=== PATIENT | male | born 1975 | race Caucasian/White ===

== ENCOUNTER 2020-06-26 17:49 | Emergency (ER) | payer OTHER ==
[2020-06-26 18:09] VITALS: BP 118/80; PULSE 97; O2SAT 97
--- NOTE | 2020-06-26 18:16 | ERPHSYRPT ---
- History of Present Illness Time Seen by Provider: 06/26/20 17:53 Source: patient Exam Limitations: no limitations Patient Subjective Stated Complaint: Pt states at approximately 1030 today 1000lb roll of carpet fell and hit pt's right leg, knee, and foot. Pt has pain to right knee and foot. Triage Nursing Assessment: Pedal pulse present. Cap refill <3 sec. Pulse, motor, sensory present and intact. Light abrasion to right anterior knee. B ruising to superior to right foot. Able to walk without difficulty. Physician History: 44 years old male presented in the ER with chief complaint of right foot pain after a heavy roll of carpet slid on fell while two persons were holding and it is right knee and slighted onto it is foot. He had a minimal discomfort in the knee which is improved and also had pain with ambulation in the right top dorsum of foot where it got hit by a carpet roll. Patient report it has significantly improved since initially got heart around 10:30 AM. Feels dull aching pain with ambulation and better with resting. No associated swelling of the foot. No pain in the knee. No restricted movements of the knee and foot/ankle. Want to make sure is not fracture. Method of Injury: direct blow Occurred: this morning Quality: aching Severity of Pain-Max: moderate Severity of Pain-Current: mild Lower Extremities Pain: foot: right Modifying Factors: Improves With: immobilization, rest. Worsens With: movement Associated Symptoms: none Allergies/Adverse Reactions: No Known Drug Allergies Allergy (Unverified 06/26/20 18:10) Hx Influenza Vaccination/Date Given: No Travel Risk - International Travel Have you traveled outside of the country in past 3 weeks: No - Coronavirus Screening Are you exhibiting any of the following symptoms?: No Close contact with a COVID-19 positive Pt in past 14-21 Days: No - Review of Systems Constitutional: No Symptoms Eyes: No Symptoms Ears, Nose, & Throat: No Symptoms Respiratory: No Symptoms Cardiac: No Symptoms Abdominal/Gastrointestinal: No Symptoms Musculoskeletal: Injury Skin: No Symptoms Neurological: No Symptoms Psychological: No Symptoms - Past Medical History Pertinent Past Medical History: No - Past Surgical History Past Surgical History: No - Social History Smoking Status: Current every day smoker Exposure to second hand smoke: Yes Drug Use: none Patient Lives Alone: No - Nursing Vital Signs Nursing Vital Signs: Initial Vital Signs Temperature 100.4 F 06/26/20 17:57 Pulse Rate 97 H 06/26/20 17:57 Respiratory Rate 18 06/26/20 17:57 Blood Pressure 118/80 06/26/20 17:57 O2 Sat by Pulse Oximetry 97 06/26/20 17:57 Pain Scale Pain Intensity 4 - Physical Exam General Appearance: no apparent distress Neck Exam: normal inspection, supple Cardiovascular/Respiratory Exam: normal breath sounds, regular rate/rhythm Back Exam: normal inspection Hips Exam: bilateral: non-tender, normal inspection, normal range of motion Legs Exam: bilateral leg: non-tender, normal inspection, normal range of motion Knees Exam: right knee: other, left knee: no evidence of injury, bilateral knee: non-tender, normal inspection Ankle Exam: bilateral ankle: non-tender, normal inspection, normal range of motion, no evidence of injury Foot Exam: right foot: bone tenderness (Minimal tenderness anterior right foot medial), pain, soft tissue tenderness, bilateral foot: normal inspection, normal range of motion Neuro/Tendon Exam: normal sensation, normal motor functions, normal tendon functions Mental Status Exam: alert, oriented x 3, cooperative Skin Exam: normal color SpO2 Interpretation: normal SpO2: 97 O2 Delivery: Room Air - Progress Progress: unchanged Progress Note: 06/26/20 18:36 He is offered pain medication but refused. X-rays ruled out fracture dislocation. Patient is ambulating without any limping or difficulty. I believe patient has some contusion. Recommended ice, Tylenol ibuprofen and outpatient follow-up. Counseled pt/family regarding: diagnosis, need for follow-up, rad results - Departure Departure Disposition: Home Clinical Impression: Contusion, foot Qualifiers: Encounter type: initial encounter Laterality: right Qualified Code(s): S90.31XA - Contusion of right foot, initial encounter Condition: Fair Critical Care Time: No Referrals: ALEXSANDER MAGDALENO [Primary Care Provider] - Follow Up with PCP/3 days SHIRLEY TILLMAN NP [NON-STAFF PHY W/O PRIVILEGES] - (2 to 3 days for reevaluation) Instructions: Contusion (DC) Additional Instructions: Avoid exertional activities. Apply ice. Take Tylenol/ibuprofen as needed for pain. Follow-up with podiatry for reevaluation. Return to ER for any worsening. Forms: Ortho Referral Prescriptions: Ibuprofen 600 mg PO Q6HPRN PRN 10 Days #20 tablet PRN Reason: Pain
--- NOTE | 2020-06-27 08:40 | XRAY ---
Indication: Pain following injury. Comparison: None 3 nonweightbearing views right foot obtained. No bony, articular, or soft tissue abnormalities.
== END 2020-06-26 18:52 | disposition home or self-care (01) ==
LOC: ED 17:49
DX: S90.31XA Contusion of right foot, initial encounter (principal); S80.01XA Contusion of right knee, initial encounter; M25.561 Pain in right knee; W22.8XXA Striking against or struck by other objects, initial encounter
CPT/HCPCS: 73630; 99283